=== PATIENT | female | born 1945 | race Caucasian/White ===

== ENCOUNTER 2019-03-15 06:27 | Emergency (ER) | payer OTHER ==
[~2019-03-15] VITALS: Ht 162.6 cm; Wt 91.6 kg
[~2019-03-15 06:27] MED LIST: ACEBUTCAFT PO; AMLO5 PO; ASPI81CH PO; CARI350; CARI350 PO; CEPH500 PO; CHOL10002 PO; ERGO400 PO; ERYT.5TO LEFTEYE; FIORICET; FISH1000 PO; GLUCHON PO; HYDMOR2 PO; LISI20 PO; OLME5TAB PO; ONDA8ODT MM; PROM25 PO; VITAMIN D PO; [UNRECOGNIZED DRUG - REMARK]
== END 2019-03-15 08:01 | disposition home or self-care (01) ==
LOC: ER 06:27
DX: M54.16 Radiculopathy, lumbar region (principal); Z88.5 Allergy status to narcotic agent
CPT/HCPCS: 72100; 73502; 99283-25

== ENCOUNTER 2019-10-15 15:20 | Emergency (ER) | payer OTHER ==
[~2019-10-15] VITALS: Ht 160 cm; Wt 95.2 kg
[2019-10-15 16:04] LABS: BASOPHILS ABSOLUTE AUTO 0.07 K/mm3 (0.00-0.23); BASOPHILS PERCENT AUTO 1 % (0-2); EOSINOPHILS PERCENT AUTO 1 % (0-6); Hematocrit 45.1 % (33.0-51.0); Hemoglobin 14.5 g/dL (11.5-16.0); IMMATURE GRAN ABSOLUTE AUTO 0.02 K/mm3 (0.00-0.10); IMMATURE GRAN PERCENT AUTO 0 % (0-1); LYMPHOCYTES ABSOLUTE AUTO 3.85 K/mm3 (0.84-5.20); LYMPHOCYTES PERCENT AUTO 31 % (21-46); MONOCYTES ABSOLUTE AUTO 0.71 K/mm3 (0.16-1.47); MONOCYTES PERCENT AUTO 6 % (4-13); Mean Corpuscular HGB 30.1 pg (26.0-34.0); Mean Corpuscular HGB Conc 32.2 g/dL (31.5-36.5); Mean Corpuscular Volume 94 fL (80-100); Mean Platelet Volume 10.5 fL (9.1-12.4); NEUTROPHILS PERCENT AUTO 62 % (41-73); Platelet Count 321 K/mm3 (150-400); RDW Coefficient Variation 14.7 % (11.7-14.2); RDW Standard Deviation 50.8 fL (35.1-46.3); Red Blood Cell Count 4.82 M/mm3 (3.80-5.20); White Blood Cell Count 12.55 K/mm3 (4.00-11.30)
[2019-10-15 16:24] LABS: C-REACTIVE PROTEIN, EXT RANGE <0.290 mg/dL (0.000-0.300); Uric Acid, Blood 3.7 mg/dL (2.6-6.0)
[2019-10-15] MEDS ORDERED: Voltaren100 GM TOP (16:55)
[2019-10-15] MEDS ORDERED: CEPH500 PO (16:55)
== END 2019-10-15 17:04 | disposition home or self-care (01) ==
LOC: ER 15:20
PROVIDERS: Physician Assistant
DX: M79.671 Pain in right foot (principal); Z91.030 Bee allergy status; Z88.5 Allergy status to narcotic agent; Z88.8 Allergy status to other drugs, medicaments and biological substances; Z91.048 Other nonmedicinal substance allergy status; Z86.718 Personal history of other venous thrombosis and embolism; Z87.891 Personal history of nicotine dependence
CPT/HCPCS: 36415; 73630; 84550; 85025; 86140; 93971; 99284-25

== ENCOUNTER 2023-03-03 11:35 | Day surgery (SDC) | payer OTHER ==
[~2023-03-03] VITALS: Ht 160 cm; Wt 91.1 kg
[~2023-03-03 11:35] MED LIST changes: +Voltaren100 GM TOP
--- NOTE | 2023-03-03 12:13 | NUR ---
03/03/23 1213 Kylee Herrera CALL LIGHT WITHIN REACH. TETRACAINE IN RIGHT EYE AT 1158 AND PLEDGETT IN RIGHT EYE AT 1200.
[2023-03-03 13:28] VITALS: BP 170/75
--- NOTE | 2023-03-03 13:57 | NUR ---
03/03/23 Tram7 Winston Harrell SECOND BLOOD PRESSURE DID NOT RECORD IN COMPUTER. PT REFUSED A RECHECK. ALL VITALS WITHIN 20% OF BASELINE. PT ADVISED TO MONITOR BLOOD PRESSURE AT HOMEAND FOLLOW UP WITH PCP REGARDING HYTPERTENSION. PT DENIED SYMPTOMS OF HYPERTENSION AND NONE WERE OBSERVED.
== END 2023-03-03 13:44 | disposition home or self-care (01) ==
LOC: ORSCSDS 11:35
PROVIDERS: Ophthalmology
PROC: 08DJ3ZZ Extraction of Right Lens, Percutaneous Approach (ICD-10-PCS; principal; 2023-03-03 13:00)
DX: H25.11 Age-related nuclear cataract, right eye (principal); I10 Essential (primary) hypertension; G47.33 Obstructive sleep apnea (adult) (pediatric)
CPT/HCPCS: J2001; J2250; J3010; J3301; J7040; V2632

== ENCOUNTER 2023-03-10 11:25 | Day surgery (SDC) | payer OTHER ==
[~2023-03-10] VITALS: Ht 160 cm; Wt 90.6 kg
--- NOTE | 2023-03-10 12:07 | NUR ---
03/10/23 1207 Kylee Gomez AT 155 PLEDGET AT 1202
[2023-03-10 13:26] VITALS: BP 179/97
== END 2023-03-10 13:39 | disposition home or self-care (01) ==
LOC: ORSCSDS 11:25
PROVIDERS: Ophthalmology
PROC: 08DK3ZZ Extraction of Left Lens, Percutaneous Approach (ICD-10-PCS; principal; 2023-03-10 13:00)
DX: H25.12 Age-related nuclear cataract, left eye (principal); Z96.1 Presence of intraocular lens; E66.9 Obesity, unspecified; Z68.35 Body mass index [BMI] 35.0-35.9, adult
CPT/HCPCS: J2001; J2250; J3010; J3301; J7040; V2632

== ENCOUNTER 2025-01-25 11:09 | Day surgery (SDC) | payer OTHER ==
[2025-01-25] VITALS (18 sets, daily range): BP systolic 126–192; BP diastolic 54–93
[~2025-01-25] VITALS: Ht 158 cm; Wt 90.0 kg
[2025-01-25] MEDS ORDERED: propofoL 40 ML IV ONE (11:19)
[2025-01-25] MEDS ORDERED: FentaNYL Citrate 50 MCG/ML 2 ML Injection ONE ×3 (11:19→15:45)
[2025-01-25] MEDS ORDERED: Lactated Ringer's 1,000 ML IV SCH ×2 (11:45→13:30)
[2025-01-25] MEDS ORDERED: Ropivacaine 0.5% HCl/Pf 123.125 MG,EPINEPHrine HCL 0.25 MG,Ketorolac Tromethamine 15 MG... INFIL SCH (11:50)
[2025-01-25] MEDS ORDERED: Chlorhexidine Mouth Care 15 ML UDC MT SCH (11:50)
[2025-01-25] MEDS ORDERED: CeFAZolin Sodium 2,000 MG in NS 100 ML IV SCH ×2 (11:50→21:00)
[2025-01-25] MEDS ORDERED: Acetaminophen 500 MG Tab PO SCH ×2 (11:50→16:00)
[2025-01-25] MEDS ORDERED: Tranexamic Acid 100 ML IV SCH (11:52)
[2025-01-25] MEDS ORDERED: Vancomycin HCL 1,000 MG in NS 250 ML IV SCH (11:55)
--- NOTE | 2025-01-25 12:51 | NUR ---
History, Chart, Medications and Allergies reviewed before start of procedure. Patient up to Ambulate independently. Gait steady. Pre-Op teaching done. Pt verbalizes understanding. Patient confirms NPO status and agrees with scheduled surgery. Patient reports completing Chlorhexadine shower X2 prior to admission to hospital. Surgical site prepped with 2% Chlorhexidine cloth wipe. Patient States Post-Procedure ride home has been arranged. Patient refusing pre-op acetaminophen; MD notified.
[2025-01-25] MEDS ORDERED: Magnesium Hydroxide Conc 10 ML UDC PO PRN (13:30)
[2025-01-25] MEDS ORDERED: DiphenhydrAMINE HCL 25 MG Cap PO PRN (13:30)
[2025-01-25] MEDS ORDERED: Metoclopramide HCl 5MG / ML 2ML Vial IV PRN (13:30)
[2025-01-25] MEDS ORDERED: FLU VACC TS2024-25(6MOS UP)/PF 45 MCG/0.5 ML SYRINGE IM SCH (13:30)
[2025-01-25] MEDS ORDERED: Bisacodyl 10 MG Supp PR PRN (13:30)
[2025-01-25] MEDS ORDERED: HYDROmorphone HCl 2 MG Tab PO PRN (13:35)
[2025-01-25] MEDS ORDERED: Ondansetron HCl 2 MG / ML 2ML Vial IV PRN (13:35)
[2025-01-25] MEDS ORDERED: Promethazine HCl 25 MG Tab PO PRN (13:35)
[2025-01-25] MEDS ORDERED: Vancomycin HCl 1000 MG ADDvantage ONE (13:43)
[2025-01-25] MEDS ORDERED: Phenylephrine HCl 100 MCG/ML-NS 10MLSYR (1MG/10ML) ONE (13:51)
[2025-01-25] MEDS ORDERED: propofoL 20 ML IV ONE ×2 (14:09→14:39)
[2025-01-25] MEDS ORDERED: HYDROmorphone HCl/Pf 1MG SYR IV PRN ×2 (15:05→16:00)
[2025-01-25] MEDS ORDERED: HYDROmorphone HCl 0.5 MG/0.5 ML SYR ONE (15:30)
[2025-01-25] MEDS ORDERED: HydrALAZINE HCl 20 MG / ML 1ML Vial ONE (15:49)
[2025-01-25] MEDS ORDERED: HYDROmorphone HCl/Pf 1MG SYR ONE (16:01)
--- NOTE | 2025-01-25 16:23 | NUR ---
ASSUMED PT CARE FROM TEODORO VILLAREAL RN AT 1600. PT ALERT/REPORTING PAIN LEVEL 8/GRIMACING. HYDRALIZINE 5MG IV GIVEN FOR HYPERTENSION. DILAUDID 0.5MG IV WAS GIVEN AT 1536 PER TEODORO VILLAREAL RN. DILAUDID 0.5MG IV GIVEN AT 1605 AND CHIKA WARMER PLACED FOR COMFORT. NOW RESTING QUIETLY.
[2025-01-25] MEDS ORDERED: Metoclopramide HCl 5MG / ML 2ML Vial ONE (16:38)
--- NOTE | 2025-01-25 17:31 | NUR ---
POST-OP PATIENT TO ROOM @1715 VITALS STABLE, DENIES PAIN AT THIS TIME. REPORTS CKD, NOT ABLE TO TAKE TORADOL. RILEY WRAP AND ICE TO LLE. SCDS AND SHERI IN PLACE. TOLERATING SIPS OF WATER AND CRACKERS. ORIENTED TO CALL LIGHT, FAMILY IN ROOM.
[2025-01-25] MEDS ORDERED: Ketorolac Tromethamine 15mg Vial IV SCH (18:00)
[2025-01-25] MEDS ORDERED: Docusate Sodium 100 MG Cap PO SCH (21:00)
[2025-01-26 00:21] VITALS: BP 124/58
[2025-01-26] MEDS ORDERED: Vancomycin HCL 1,000 MG in NS 250 ML IV SCH (01:00)
[2025-01-26 04:58] VITALS: BP 174/71
[2025-01-26 05:46] LABS: BASOPHILS ABSOLUTE AUTO 0.04 K/mm3 (0.00-0.23); BASOPHILS PERCENT AUTO 0 % (0-2); EOSINOPHILS ABSOLUTE AUTO 0.06 K/mm3 (0.00-0.68); EOSINOPHILS PERCENT AUTO 1 % (0-6); Hematocrit 36.2 % (33.0-51.0); IMMATURE GRAN ABSOLUTE AUTO 0.04 K/mm3 (0.00-0.10); IMMATURE GRAN PERCENT AUTO 0 % (0-1); LYMPHOCYTES ABSOLUTE AUTO 2.17 K/mm3 (0.84-5.20); LYMPHOCYTES PERCENT AUTO 17 % (21-46); MONOCYTES PERCENT AUTO 9 % (4-13); Mean Corpuscular HGB 31.1 pg (26.0-34.0); Mean Corpuscular HGB Conc 33.1 g/dL (31.5-36.5); Mean Corpuscular Volume 94 fL (80-100); Mean Platelet Volume 11.6 fL (9.1-12.4); NEUTROPHILS ABSOLUTE AUTO 9.54 K/mm3 (1.96-9.15); NEUTROPHILS PERCENT AUTO 74 % (41-73); Platelet Count 368 K/mm3 (150-400); RDW Coefficient Variation 14.5 % (11.7-14.2); RDW Standard Deviation 49.4 fL (35.1-46.3); Red Blood Cell Count 3.86 M/mm3 (3.80-5.20); White Blood Cell Count 12.95 K/mm3 (4.00-11.30)
[2025-01-26 06:05] LABS: Creatinine, Blood 0.86 mg/dL (0.40-1.00); Potassium, Blood 4.2 mmol/L (3.5-5.5)
[2025-01-26 07:05] VITALS: BP 170/64
[2025-01-26 07:07] VITALS: BP 172/62
--- NOTE | 2025-01-26 07:44 | NUR ---
SHIFT SUMMARY POD 1 LEFT TKA. DRESSING CDI WITH CRYO IN PLACE PASCUAL. PAIN MANAGED PER EMAR. ABX INFUSED PER ORDERS. PASCUAL PO INTAKE, DENIES N/V. AMBULATING WITH FWW, GB, SBA. IV PATENT AND SL. IS VOIDING. UP IN CHAIR AT SHIFT CHANGE AND NOW IS AMBULATING IN HALLWAY WITH PT. PLAN TO DC HOME TODAY. REPORT GIVEN TO DAY RN.
[2025-01-26] MEDS ORDERED: ACET500 PO (08:00)
[2025-01-26] MEDS ORDERED: PROM12.5S PO (08:03)
[2025-01-26] MEDS ORDERED: HYDMOR2 PO (08:03)
[2025-01-26] MEDS ORDERED: XARELTO10 M1 PO (08:04)
[2025-01-26] MEDS ORDERED: SULTRIDS PO (08:04)
[2025-01-26] MEDS ORDERED: Trimethoprim/Sulfamethoxazole DS Tab PO SCH (09:00)
--- NOTE | 2025-01-26 10:42 | NUR ---
DISCHARGE PATIENT IV TAKEN OUT, PASSES THERAPY, VOIDING, TOLERATING FOOD INTAKE. DENIES NEED FOR PAIN MEDICATION. ALL INSTRUCTIONS READ VERBALIZED AND SIGNED BY PATIENT. PATIENT LEAVES VIA WHEEL CHAIR.
[2025-01-26] MEDS ORDERED: Rivaroxaban 10 MG Tab PO SCH (19:00)
== END 2025-01-26 10:39 | disposition home or self-care (01) ==
LOC: ORSCMMR 11:09 → ORD 14:00 → SURS 16:20 → ORSCMMR 23:00 → SURS 23:00 → ORSCMMR 01-26 10:39
PROVIDERS: Orthopaedic Surgery
PROC: 0SRD0JA Replacement of Left Knee Joint with Synthetic Substitute, Uncemented, Open Approach (ICD-10-PCS; principal; 2025-01-25 14:00)
DX: M17.12 Unilateral primary osteoarthritis, left knee (principal); E78.5 Hyperlipidemia, unspecified; G47.33 Obstructive sleep apnea (adult) (pediatric); I10 Essential (primary) hypertension; Z87.891 Personal history of nicotine dependence; I25.10 Atherosclerotic heart disease of native coronary artery without angina pectoris; E66.9 Obesity, unspecified; Z68.36 Body mass index [BMI] 36.0-36.9, adult
CPT/HCPCS: 36415; 73560-LT; 80048; 83735; 85025; 97110; 97112; 97161; A9270; C1713; C1776; J0171; J0360; J0690; J0735; J1171; J1885; J2371; J2704; J2765; J2795; J3010; J3370; J7050; J7120